=== PATIENT | female | born 1940 | race Caucasian/White ===

== ENCOUNTER 2018-07-11 13:13 | Outpatient (CLI) | payer BC ==
--- NOTE | 2018-07-11 15:53 | PET ---
PET SCAN DEMENTIA: 07/11/18 HISTORY: Primary progressive aphasia. TECHNIQUE: PET scan of the brain was performed with CT attenuation correction following the intravenous administ ration of 8 millicuries of [id number]. FINDINGS: There is hypometabolism noted in the temporoparietal lobes. There is normal uptake in the frontal lob es. IMPRESSION: Findings are suggestive of Alzheimer's disease. POS: JARED
== END 2018-07-11 13:14 | disposition home or self-care (01) ==
LOC: PET 13:13
PROVIDERS: ATTEND Psychiatry & Neurology Neurology
DX: G31.01 Pick's disease (principal); F02.80 Dementia in other diseases classified elsewhere, unspecified severity, without behavioral disturbance, psychotic disturbance, mood disturbance, and anxiety
CPT/HCPCS: 78608; A9552

== ENCOUNTER 2019-07-05 15:50 | Emergency (ER) | payer BC, MEDICARE ==
--- NOTE | 2019-07-05 17:06 | CT ---
CT BRAIN NONCONTRAST: DATE: 07/05/2019 HISTORY: 78-year-old female with expressive aphasia presents with acute head trauma from fall FINDINGS: There is no evidence of acute intra-axial or extra-axial hemorrhage. There is no midline shift or any other mass effect. There is no extra-axial fluid collection. There is no evidence of obstructive hydrocephalus. Calvarium is intact. There is diffuse brain parenchymal volume loss. There are low att enuation areas in the white matter. These are nonspecific, but in a patient of this age, they are probably chronic ischemic white matter changes due to microvascular atherosclerosis. IMPRESSION: 1) No acute intracranial findings. 2) involutional changes and chronic ischemic white matter changes.
[2019-07-05] MEDS ORDERED: Bacitracin 1 PK ONE (17:30)
[2019-07-05] MEDS ORDERED: Adacel (T-DAP) 0.5 ML SYRINGE ONE (17:59)
[2019-07-05] MEDS ORDERED: Acetaminophen 500 MG TAB ONE (18:04)
== END 2019-07-05 18:19 | disposition home or self-care (01) ==
LOC: ERS 15:50
DX: S01.01XA Laceration without foreign body of scalp, initial encounter (principal); F03.90 Unspecified dementia, unspecified severity, without behavioral disturbance, psychotic disturbance, mood disturbance, and anxiety; Z79.899 Other long term (current) drug therapy; W22.8XXA Striking against or struck by other objects, initial encounter
CPT/HCPCS: 12002; 70450; 90471; 90715

== ENCOUNTER 2021-12-16 09:06 | Day surgery (SDC) | payer MEDICARE, BC ==
[2021-12-15 12:48] VITALS: BMI 25.9
[2021-12-16] MEDS ORDERED: PROPOFOL 200 MG/20 ML VIAL ONE (11:20)
== END 2021-12-16 13:12 | disposition home or self-care (01) ==
LOC: SDC 09:06
PROVIDERS: ATTEND Internal Medicine Gastroenterology
PROC: 0DB98ZX Excision of Duodenum, Via Natural or Artificial Opening Endoscopic, Diagnostic (ICD-10-PCS; principal; 2021-12-16)
PROC: 0DB68ZX Excision of Stomach, Via Natural or Artificial Opening Endoscopic, Diagnostic (ICD-10-PCS; 2021-12-16)
PROC: 0DJD8ZZ Inspection of Lower Intestinal Tract, Via Natural or Artificial Opening Endoscopic (ICD-10-PCS; 2021-12-16)
DX: K29.80 Duodenitis without bleeding (principal); K31.89 Other diseases of stomach and duodenum; D50.9 Iron deficiency anemia, unspecified; K44.9 Diaphragmatic hernia without obstruction or gangrene; K26.9 Duodenal ulcer, unspecified as acute or chronic, without hemorrhage or perforation; K57.30 Diverticulosis of large intestine without perforation or abscess without bleeding; K62.89 Other specified diseases of anus and rectum; Z79.899 Other long term (current) drug therapy
CPT/HCPCS: 88305; J2704

== ENCOUNTER 2024-04-08 11:48 | Observation (INO) | payer BC, MEDICARE ==
[2024-04-08 12:20] LABS: #Basophils 0.03 10x3/uL (0.0-0.2); %Basophils 0.5 % (0.0-1.0); %Eosinophils 1.6 % (0.0-10.0); %Lymphocytes 18.3 % (21.0-51.0); %Monocytes 5.4 % (0.0-10.0); Hematocrit 36.3 % (36.0-47.0); Hemoglobin 11.4 g/dL (12.0-16.0); Mean Corpuscular HGB CONC 31.4 g/dL (32.0-36.0); Mean Corpuscular Hemoglobin 27.9 pg (27.0-31.0); Platelet Count 158 10x3/uL (130-400); RBC Distribution Width 13.3 % (11.5-14.5); Red Blood Cell (RBC) Count 4.08 mill/uL (4.20-5.40)
[2024-04-08 12:34] LABS: ALT (SGPT) 12 U/L (Less than 34); AST (SGOT) 17 U/L (11-34); Acetaminophen Less than 10 mcg/mL (Less than 10); Albumin 3.3 g/dL (3.1-4.5); Alcohol Less than 10.0 mg/dL (Less than 10); Alkaline Phosphatase 47 U/L (40-110); Anion Gap 11 mmol/L (10-20); BUN (Urea Nitrogen) 19 mg/dL (9.8-20.1); Bilirubin, Total 0.9 mg/dL (0.3-1.2); CK (CPK) 51 U/L (29-168); Calc. Creatinine Clearance 0 mL/min (70-130); Calcium 8.2 mg/dL (7.8-10.44); Carbon Dioxide 23 mmol/L (23-31); Chloride 113 mmol/L (98-107); Estimated GFR 49; Globulin 2.4 g/dL (2.4-3.5); Glucose 93 mg/dL (83-110); Lipase 44 U/L (8-78); Potassium 4.8 mmol/L (3.5-5.1); Protein, Total 5.7 g/dL (5.8-8.1); Salicylate Less than 8.0 mg/dL (Less than 8.0); Sodium 142 mmol/L (136-145)
[2024-04-08 14:10] LABS: Troponin I Less than 0.010 ng/mL (< 0.028)
[2024-04-08] MEDS ORDERED: Nitroglycerin 0.4 MG TAB (25 Tab Bottle) SL PRN (14:43)
[2024-04-08] MEDS ORDERED: Atropine Sulfate 1 mg/1 ml Vial IVP PRN (14:46)
[2024-04-08 16:02] LABS: Magnesium 1.9 mg/dL (1.6-2.6)
[2024-04-08 16:24] VITALS: BMI 22.6
[2024-04-08] MEDS ORDERED: Acetaminophen 325 MG TAB PO PRN (17:39)
[2024-04-08] MEDS ORDERED: Senokot S 8.6-50 MG TAB PO PRN (17:39)
[2024-04-08] MEDS ORDERED: Calcium Carbonate 500 MG ChewTAB PO PRN (17:39)
[2024-04-08 17:41] LABS: Troponin I Less than 0.010 ng/mL (< 0.028)
[2024-04-08 20:10] LABS: Troponin I 0.014 ng/mL (< 0.028)
[2024-04-08] MEDS: Magnesium 2 GM/50 ML(in water) 2 GM in Premix 1 BAG IVPB SCH (22:26)
[2024-04-08 22:46] LABS: Bacteria/HPF 2+ HPF (None Seen); Bilirubin Negative (Negative); Blood, Urine Negative (Negative); Clarity Clear (Clear); Glucose, Urine (Dipstick) Normal (Negative); Ketone, Urine Negative (Negative); Leukocyte 500 Leu/uL (Negative); Nitrite 2+ (Negative); Protein, Urine (Dipstick) Negative (Neg-Trace); RBC/HPF 0-3 HPF (0-3); Specific Gravity, Urine 1.021 (1.002-1.036); Squamous Epithelial 0-3 HPF (0-3); Urobilinogen Normal mg/dL (Less than 2); WBC/HPF 21-50 HPF (0-3)
[2024-04-09] MEDS: cefTRIAXone\\ROCEPHIN 1 GM in Sodium Chloride 0.9% 100 ML IVPB SCH (11:30)
[2024-04-09] MEDS: Donepezil HCl 10 MG TAB PO SCH (11:52)
[2024-04-09] MEDS: Levothyroxine Sodium 25 MCG TAB PO SCH (11:53)
[2024-04-09] MEDS: Ferrous Sulfate 325 MG TAB PO SCH (11:53)
[2024-04-09] MEDS: Memantine 10 MG TAB PO SCH (11:54)
[2024-04-09 12:24] VITALS: BP 139/79; TEMP 96.2
== END 2024-04-09 13:36 | disposition home health service (06) ==
LOC: ERS 11:48 → 2SE 13:13
PROVIDERS: ADMIT Internal Medicine; ATTEND Internal Medicine
DX: R55 Syncope and collapse (principal); R00.1 Bradycardia, unspecified; G30.9 Alzheimer's disease, unspecified; F02.80 Dementia in other diseases classified elsewhere, unspecified severity, without behavioral disturbance, psychotic disturbance, mood disturbance, and anxiety; E03.9 Hypothyroidism, unspecified; E44.1 Mild protein-calorie malnutrition; N39.0 Urinary tract infection, site not specified; N18.30 Chronic kidney disease, stage 3 unspecified; D63.1 Anemia in chronic kidney disease; Z68.22 Body mass index [BMI] 22.0-22.9, adult; Z79.890 Hormone replacement therapy; Z79.899 Other long term (current) drug therapy
CPT/HCPCS: 70450; 71045; 80307; 81001; 82550; 83605; 83690; 83735; 83880; 84484 ×2; 87040; 87428; 93005; 96374; 97116; 99285; G0378 ×2; J3475; 36415; 80053; 84443; 85025; J0696

== ENCOUNTER 2025-01-11 13:59 | Emergency (ER) | payer MEDICARE ==
[2025-01-11 15:19] LABS: #Basophils 0.04 10x3/uL (0.0-0.2); #Eosinophils 0.15 10x3/uL (0.0-0.7); #Monocytes 0.35 10x3/uL (0.11-0.59); #Neutrophils 3.15 10x3/uL (1.40-6.50); %Basophils 0.7 % (0.0-1.0); %Eosinophils 2.8 % (0.0-10.0); %Lymphocytes 31.2 % (21.0-51.0); %Monocytes 6.5 % (0.0-10.0); %Neutrophils 58.6 % (42.0-75.0); Hematocrit 36.0 % (36.0-47.0); Hemoglobin 11.2 g/dL (12.0-16.0); Mean Corpuscular Hemoglobin 27.3 pg (27.0-31.0); Mean Corpuscular Volume 87.8 fL (78.0-98.0); Platelet Count 163 10x3/uL (130-400); Red Blood Cell (RBC) Count 4.10 mill/uL (4.20-5.40); White Blood Cell (WBC) Count 5.38 10x3/uL (4.8-10.8)
[2025-01-11 15:36] LABS: ALT (SGPT) 17 U/L (Less than 34); AST (SGOT) 20 U/L (11-34); Albumin 3.6 g/dL (3.1-4.5); Alkaline Phosphatase 49 U/L (40-110); Anion Gap 13 mmol/L (10-20); BUN (Urea Nitrogen) 19 mg/dL (9.8-20.1); Bilirubin, Total 0.8 mg/dL (0.3-1.2); Calc. Creatinine Clearance 0 mL/min (70-130); Calcium 8.8 mg/dL (7.8-10.44); Carbon Dioxide 22 mmol/L (23-31); Chloride 112 mmol/L (98-107); Globulin 2.4 g/dL (2.4-3.5); Glucose 83 mg/dL (83-110); Potassium 4.3 mmol/L (3.5-5.1); Sodium 143 mmol/L (136-145)
[2025-01-11 17:46] LABS: CAUTI Indications for Culture Alt mental st,lethar; Glucose, Urine (Dipstick) Normal (Negative); Leukocyte 75 Leu/uL (Negative); Protein, Urine (Dipstick) Negative (Neg-Trace); RBC/HPF 0-3 HPF (0-3); Specific Gravity, Urine 1.009 (1.002-1.036)
[2025-01-11 17:51] LABS: Bacteria/HPF 1+ HPF (None Seen); Urine Culture Reflex No No
== END 2025-01-11 18:10 | disposition home or self-care (01) ==
LOC: ERS 13:59
DX: R40.0 Somnolence (principal); F03.90 Unspecified dementia, unspecified severity, without behavioral disturbance, psychotic disturbance, mood disturbance, and anxiety; R47.01 Aphasia
CPT/HCPCS: 70450; 71045; 80053; 81001; 82962; 83605; 83880; 84484; 85025; 87040; 93005; J0461; J2310; 36416; 96361; 96374; 96375

== ENCOUNTER 2025-01-23 09:12 | Day surgery (SDC) | payer MEDICARE ==
[2025-01-22 13:07] VITALS: BMI 24.3
[2025-01-23] MEDS ORDERED: CEFAZOLIN 1 GM VIAL ONE (09:45)
[2025-01-23] MEDS ORDERED: Lidocaine 1% (PF) 30 ML VIAL ONE (09:45)
[2025-01-23] MEDS ORDERED: Iopamidol 370 76% 100 ML VIAL ONE (10:55)
[2025-01-23] MEDS ORDERED: PHENYLEPHRINE-NS 100 MCG/ML 10 ML SYRINGE ONE (12:16)
== END 2025-01-23 17:10 | disposition home or self-care (01) ==
LOC: SDC 09:12
PROVIDERS: ATTEND Internal Medicine Cardiovascular Disease
PROC: 0JH606Z Insertion of Pacemaker, Dual Chamber into Chest Subcutaneous Tissue and Fascia, Open Approach (ICD-10-PCS; principal; 2025-01-23)
PROC: 02HK3JZ Insertion of Pacemaker Lead into Right Ventricle, Percutaneous Approach (ICD-10-PCS; 2025-01-23)
DX: I49.5 Sick sinus syndrome (principal); R55 Syncope and collapse; F03.90 Unspecified dementia, unspecified severity, without behavioral disturbance, psychotic disturbance, mood disturbance, and anxiety; E03.9 Hypothyroidism, unspecified; D64.9 Anemia, unspecified
CPT/HCPCS: 33208; 71045; 93005; C1785; C1898 ×2; J0690; J1580; J2003; J2250; J3010; Q9967; 93010; 99152; 99153

== ENCOUNTER 2025-01-30 13:29 | Emergency (ER) | payer MEDICARE ==
[2025-01-30 13:51] LABS: #Basophils 0.06 10x3/uL (0.0-0.2); #Eosinophils 0.21 10x3/uL (0.0-0.7); #Monocytes 0.44 10x3/uL (0.11-0.59); #Neutrophils 3.59 10x3/uL (1.40-6.50); %Basophils 1.0 % (0.0-1.0); %Eosinophils 3.6 % (0.0-10.0); %Lymphocytes 25.6 % (21.0-51.0); %Monocytes 7.6 % (0.0-10.0); %Neutrophils 62.0 % (42.0-75.0); Hematocrit 38.0 % (36.0-47.0); Hemoglobin 12.0 g/dL (12.0-16.0); Mean Corpuscular Hemoglobin 27.5 pg (27.0-31.0); Mean Corpuscular Volume 87.0 fL (78.0-98.0); Platelet Count 141 10x3/uL (130-400); Red Blood Cell (RBC) Count 4.37 mill/uL (4.20-5.40); White Blood Cell (WBC) Count 5.79 10x3/uL (4.8-10.8)
[2025-01-30 14:08] LABS: Bacteria/HPF None Seen HPF (None Seen); CAUTI Indications for Culture Dysuria,urgency,freq; Glucose, Urine (Dipstick) Normal (Negative); Leukocyte Negative Leu/uL (Negative); Protein, Urine (Dipstick) Negative (Neg-Trace); RBC/HPF None Seen HPF (0-3); Specific Gravity, Urine 1.017 (1.002-1.036); WBC/HPF 0-3 HPF (0-3)
[2025-01-30 14:10] LABS: ALT (SGPT) 16 U/L (Less than 34); AST (SGOT) 25 U/L (11-34); Albumin 3.8 g/dL (3.1-4.5); Alkaline Phosphatase 64 U/L (40-110); Anion Gap 15 mmol/L (10-20); BUN (Urea Nitrogen) 24 mg/dL (9.8-20.1); Bilirubin, Total 1.0 mg/dL (0.3-1.2); Calc. Creatinine Clearance 0 mL/min (70-130); Calcium 9.1 mg/dL (7.8-10.44); Carbon Dioxide 25 mmol/L (23-31); Chloride 109 mmol/L (98-107); Globulin 2.8 g/dL (2.4-3.5); Glucose 86 mg/dL (83-110); Potassium 4.6 mmol/L (3.5-5.1); Sodium 144 mmol/L (136-145)
[2025-01-30 14:11] LABS: Urine Culture Reflex No No
== END 2025-01-30 16:38 | disposition home or self-care (01) ==
LOC: ERS 13:29
DX: R40.0 Somnolence (principal)
CPT/HCPCS: 51701; 70450; 80053; 81001; 83605; 84484; 85025; 87040; 93005